=== PATIENT | female | born 2000 | race American Indian/Alaskan Native ===

== ENCOUNTER 2019-01-15 19:41 | Emergency (ER) | payer MEDICAID, OTHER ==
--- NOTE | 2019-01-15 20:09 | Emergency Department Report ---
Blank Doc - Documentation Documentation: This is a 19-year-old female that presents with SI. This initial assessment/diagnostic orders/clinical plan/treatment(s) is/are subject to change based on patient's health status, clinical progression and re- assessment by fellow clinical providers in the ED. Further treatment and workup at subsequent clinical providers discretion. Patient/guardians urged not to elope from the ED as their condition may be serious if not clinically assessed and managed. Initial orders include: 1- Patient sent to MAIN ED for further evaluation and treatment 2- shuttle repairer was notified to have patient be brought back [facility]. 3- RN was notified to keep patient as close range and observation until room available 4- Patient presents with substantial risk of imminent harm to self, appears to be so unable to care for his/her own physical health and safety as to create an imminently life-endangering crisis, and has committed/expressed life endangering crisis to self. Due to this and other complaints, patient is put on 1013.
[2019-01-15 20:39] LABS: Basophils % (Auto) 0.6 % (0.0-1.8); Eosinophils # (Auto) 0.7 K/mm3 (0.0-0.4); Hematocrit 39.7 % (30.3-42.9); Hemoglobin 13.7 gm/dl (10.1-14.3); Lymphocytes # (Auto) 1.7 K/mm3 (1.2-5.4); Lymphocytes % (Auto) 32.8 % (13.4-35.0); Mean Corpuscular HGB Conc 35 % (30-34); Mean Corpuscular Volume 93 fl (79-97); Monocytes # (Auto) 0.5 K/mm3 (0.0-0.8); Platelet Count 246 K/mm3 (140-440); Red Blood Count 4.28 M/mm3 (3.65-5.03); Red Cell Distribution Width 12.9 % (13.2-15.2)
[2019-01-15 20:48] LABS: BUN/Creatinine Ratio 14; Blood Urea Nitrogen 11 mg/dL (7-17); Calcium 8.8 mg/dL (8.4-10.2); Hemolysis Index 23
[2019-01-15 21:07] LABS: Bilirubin,Urine NEG (Negative); Blood,Urine LG (Negative); Color,Urine Yellow (Yellow); Mucus,Urine FEW /HPF; Protein,Urine <15 mg/dL mg/dL (Negative); Urobilinogen,Urine < 2.0 mg/dL (<2.0)
--- NOTE | 2019-01-15 21:07 | Emergency Department Report ---
ED Psych HPI - General Chief Complaint: Psych Stated Complaint: SUICIDAL THOUGHTS Time Seen by Provider: 01/15/19 20:09 Source: patient Mode of arrival: Ambulatory - History of Present Illness Initial Comments: Patient is a 19-year-old female who has a history of bipolar disorder who is currently feeling very depressed. Patient is a cutter and states she cut her left forearm several days ago. Patient states she is feeling actively suicidal. Denies a plan of cutting her wrist. Patient has no auditory or visual hallucinations at this time. Patient states she is compliant with her medications although she does not like the side effects. Patient is on Paxil Risperdal. - Related Data Home Medications Medication Instructions Recorded Confirmed Last Taken PARoxetine [Paxil] 20 mg PO DAILY 01/15/19 01/15/19 01/15/19 risperiDONE [RisperiDONE] 2 mg PO QHS 01/15/19 01/15/19 01/14/19 Allergies Allergy/AdvReac Type Severity Reaction Status Date / Time No Known Allergies Allergy Unverified 01/15/19 20:14 ED Review of Systems ROS: Stated complaint: SUICIDAL THOUGHTS Other details as noted in HPI Comment: All other systems reviewed and negative ED Past Medical Hx - Past Medical History Previous Medical History?: Yes Hx of Cancer: Yes (Thyroid) Hx Psychiatric Treatment: Yes (Depression, Bipolar) - Surgical History Past Surgical History?: Yes Additional Surgical History: Thyroidectomy - Social History Smoking Status: Never Smoker Substance Use Type: None - Medications Home Medications: Home Medications Medication Instructions Recorded Confirmed Last Taken Type PARoxetine [Paxil] 20 mg PO DAILY 01/15/19 01/15/19 01/15/19 History risperiDONE [RisperiDONE] 2 mg PO QHS 01/15/19 01/15/19 01/14/19 History ED Physical Exam - General Limitations: No Limitations General appearance: alert, in no apparent distress - Head Head exam: Present: atraumatic, normocephalic - Eye Eye exam: Present: normal appearance, PERRL, EOMI - ENT ENT exam: Present: mucous membranes moist - Neck Neck exam: Present: normal inspection - Respiratory Respiratory exam: Present: normal lung sounds bilaterally. Absent: respiratory distress, wheezes, rales, rhonchi - Cardiovascular Cardiovascular Exam: Present: regular rate, normal rhythm, normal heart sounds. Absent: systolic murmur, diastolic murmur, rubs, gallop - GI/Abdominal GI/Abdominal exam: Present: soft, normal bowel sounds. Absent: distended, tenderness, guarding, rebound - Extremities Exam Extremities exam: Present: normal inspection, other (patient's left forearm shows several well-healed scars from previous episodes of cutting. Is also one small linear abrasion which is also in the later stages of healing that appears to be newer than the other wounds. There is no open skin at this time there is no need for any further wound care.) - Back Exam Back exam: Present: normal inspection - Neurological Exam Neurological exam: Present: alert, oriented X3 - Psychiatric Psychiatric exam: Present: depressed, flat affect - Skin Skin exam: Present: warm, dry, intact, normal color. Absent: rash ED Course Vital Signs 01/15/19 19:49 Temperature 98.4 F Pulse Rate 95 H Respiratory 18 Rate Blood Pressure 120/77 O2 Sat by Pulse 97 Oximetry ED Medical Decision Making - Lab Data Result diagrams: 01/15/19 20:17 01/15/19 20:17 Lab Results 01/15/19 01/15/19 01/15/19 Range/Units 20:17 20:17 20:17 WBC 5.1 (4.5-11.0) K/mm3 RBC 4.28 (3.65-5.03) M/mm3 Hgb 13.7 (10.1-14.3) gm/dl Hct 39.7 (30.3-42.9) % MCV 93 (79-97) fl MCH 32 (28-32) pg MCHC 35 H (30-34) % RDW 12.9 L (13.2-15.2) % Plt Count 246 (140-440) K/mm3 Lymph % (Auto) 32.8 (13.4-35.0) % [place]linger % (Auto) 9.0 H (0.0-7.3) % Eos % (Auto) 13.0 H (0.0-4.3) % Baso % (Auto) 0.6 (0.0-1.8) % Lymph # 1.7 (1.2-5.4) K/mm3 Bollinger # 0.5 (0.0-0.8) K/mm3 Eos # 0.7 H (0.0-0.4) K/mm3 Baso # 0.0 (0.0-0.1) K/mm3 Seg Neutrophils % 44.6 (40.0-70.0) % Seg Neutrophils # 2.3 (1.8-7.7) K/mm3 Sodium 136 L (137-145) mmol/L Potassium 3.6 (3.6-5.0) mmol/L Chloride 100.9 (98-107) mmol/L Carbon Dioxide 22 (22-30) mmol/L Anion Gap 17 mmol/L BUN 11 (7-17) mg/dL Creatinine 0.8 (0.7-1.2) mg/dL Estimated GFR > 60 ml/min BUN/Creatinine Ratio 14 % Glucose 119 H (65-100) mg/dL Calcium 8.8 (8.4-10.2) mg/dL Urine Color (Yellow) Urine Turbidity (Clear) Urine pH (5.0-7.0) Ur Specific [place] (1.003-1.030) Urine Protein (Negative) mg/dL Urine Glucose (UA) (Negative) mg/dL Urine Ketones (Negative) mg/dL Urine Blood (Negative) Urine Nitrite (Negative) Urine Bilirubin (Negative) Urine Urobilinogen (<2.0) mg/dL Ur Leukocyte Esterase (Negative) Urine WBC (Auto) (0.0-6.0) /HPF Urine RBC (Auto) (0.0-6.0) /HPF U Epithel Cells (Auto) (0-13.0) /HPF Urine Mucus /HPF Urine HCG, Qual (Negative) Salicylates < 0.3 L (2.8-20.0) mg/dL Urine Opiates Screen Urine Methadone Screen Acetaminophen (10.0-30.0) ug/mL Ur Barbiturates Screen Ur Phencyclidine Scrn Ur Amphetamines Screen U Benzodiazepines Scrn Urine Cocaine Screen U Marijuana (THC) Screen Drugs of Abuse Note Plasma/Serum Alcohol (0-0.07) % 01/15/19 01/15/19 01/15/19 Range/Units 20:17 20:17 20:30 WBC (4.5-11.0) K/mm3 RBC (3.65-5.03) M/mm3 Hgb (10.1-14.3) gm/dl Hct (30.3-42.9) % MCV (79-97) fl MCH (28-32) pg MCHC (30-34) % RDW (13.2-15.2) % Plt Count (140-440) K/mm3 Lymph % (Auto) (13.4-35.0) % Bollinger % (Auto) (0.0-7.3) % Eos % (Auto) (0.0-4.3) % Baso % (Auto) (0.0-1.8) % Lymph # (1.2-5.4) K/mm3 Bollinger # (0.0-0.8) K/mm3 Eos # (0.0-0.4) K/mm3 Baso # (0.0-0.1) K/mm3 Seg Neutrophils % (40.0-70.0) % Seg Neutrophils # (1.8-7.7) K/mm3 Sodium (137-145) mmol/L Potassium (3.6-5.0) mmol/L Chloride (98-107) mmol/L Carbon Dioxide (22-30) mmol/L Anion Gap mmol/L BUN (7-17) mg/dL Creatinine (0.7-1.2) mg/dL Estimated GFR ml/min BUN/Creatinine Ratio % Glucose (65-100) mg/dL Calcium (8.4-10.2) mg/dL Urine Color Yellow (Yellow) Urine Turbidity Clear (Clear) Urine pH 5.0 (5.0-7.0) Ur Specific [place] 1.023 (1.003-1.030) Urine Protein <15 mg/dl (Negative) mg/dL Urine Glucose (UA) Neg (Negative) mg/dL Urine Ketones Neg (Negative) mg/dL Urine Blood Lg (Negative) Urine Nitrite Neg (Negative) Urine Bilirubin Neg (Negative) Urine Urobilinogen < 2.0 (<2.0) mg/dL Ur Leukocyte Esterase Tr (Negative) Urine WBC (Auto) 3.0 (0.0-6.0) /HPF Urine RBC (Auto) 130.0 (0.0-6.0) /HPF U Epithel Cells (Auto) 1.0 (0-13.0) /HPF Urine Mucus Few /HPF Urine HCG, Qual Negative (Negative) Salicylates (2.8-20.0) mg/dL Urine Opiates Screen Urine Methadone Screen Acetaminophen < 5.0 L (10.0-30.0) ug/mL Ur Barbiturates Screen Ur Phencyclidine Scrn Ur Amphetamines Screen U Benzodiazepines Scrn Urine Cocaine Screen U Marijuana (THC) Screen Drugs of Abuse Note Plasma/Serum Alcohol < 0.01 (0-0.07) % 01/15/19 Range/Units 20:30 WBC (4.5-11.0) K/mm3 RBC (3.65-5.03) M/mm3 Hgb (10.1-14.3) gm/dl Hct (30.3-42.9) % MCV (79-97) fl MCH (28-32) pg MCHC (30-34) % RDW (13.2-15.2) % Plt Count (140-440) K/mm3 Lymph % (Auto) (13.4-35.0) % Bollinger % (Auto) (0.0-7.3) % Eos % (Auto) (0.0-4.3) % Baso % (Auto) (0.0-1.8) % Lymph # (1.2-5.4) K/mm3 Bollinger # (0.0-0.8) K/mm3 Eos # (0.0-0.4) K/mm3 Baso # (0.0-0.1) K/mm3 Seg Neutrophils % (40.0-70.0) % Seg Neutrophils # (1.8-7.7) K/mm3 Sodium (137-145) mmol/L Potassium (3.6-5.0) mmol/L Chloride (98-107) mmol/L Carbon Dioxide (22-30) mmol/L Anion Gap mmol/L BUN (7-17) mg/dL Creatinine (0.7-1.2) mg/dL Estimated GFR ml/min BUN/Creatinine Ratio % Glucose (65-100) mg/dL Calcium (8.4-10.2) mg/dL Urine Color (Yellow) Urine Turbidity (Clear) Urine pH (5.0-7.0) Ur Specific [place] (1.003-1.030) Urine Protein (Negative) mg/dL Urine Glucose (UA) (Negative) mg/dL Urine Ketones (Negative) mg/dL Urine Blood (Negative) Urine Nitrite (Negative) Urine Bilirubin (Negative) Urine Urobilinogen (<2.0) mg/dL Ur Leukocyte Esterase (Negative) Urine WBC (Auto) (0.0-6.0) /HPF Urine RBC (Auto) (0.0-6.0) /HPF U Epithel Cells (Auto) (0-13.0) /HPF Urine Mucus /HPF Urine HCG, Qual (Negative) Salicylates (2.8-20.0) mg/dL Urine Opiates Screen Presumptive negative Urine Methadone Screen Presumptive negative Acetaminophen (10.0-30.0) ug/mL Ur Barbiturates Screen Presumptive negative Ur Phencyclidine Scrn Presumptive negative Ur Amphetamines Screen Presumptive negative U Benzodiazepines Scrn Presumptive negative Urine Cocaine Screen Presumptive negative U Marijuana (THC) Screen Presumptive negative Drugs of Abuse Note Disclamer Plasma/Serum Alcohol (0-0.07) % - Medical Decision Making Patient is medically clear for psychiatric evaluation at this time. Critical care attestation.: If time is entered above; I have spent that time in minutes in the direct care of this critically ill patient, excluding procedure time. ED Disposition Clinical Impression: Suicidal ideations, Encounter for psychiatric assessment Disposition: DC/TX-65 PSY HOSP/PSY UNIT Is pt being admited?: No Does the pt Need Aspirin: No Condition: Stable Time of Disposition: 21:38
[2019-01-15 21:12] LABS: HCG Qualitative,Urine Negative (Negative)
[2019-01-15 21:32] LABS: Amphetamine Screen,Urine PRESUMPTIVE NEGATIVE; Benzodiazepines Screen,Urine PRESUMPTIVE NEGATIVE; Cannabinoid Screen,Urine PRESUMPTIVE NEGATIVE; Cocaine Screen,Urine PRESUMPTIVE NEGATIVE; Methadone Screen,Urine PRESUMPTIVE NEGATIVE; Opiate Screen,Urine PRESUMPTIVE NEGATIVE
[2019-01-15] MEDS ORDERED: RisperDAL ONE (22:04)
[2019-01-15] MEDS: RisperDAL PO SCH (22:05)
[2019-01-16] MEDS: ATIVAN IM PRN (10:26)
--- NOTE | 2019-01-16 11:04 | Consultation ---
History of Present Illness - Reason for Consult Consult date: 01/16/19 Reason for consult: Mental Health Evaluation Requesting physician: BONIFACIO PACK - Chief Complaint Chief complaint: "I have no reason to live" - History of Present Psychiatric Illness 19-year-old female who presented to the ER for depression and SI's. Today the patent was calm, but withdrawn during the assessment. She stated that she have been feeling suicidal for several day. She cannot explain why she has SI's when asked. She stated that she cut her inner left FA "just because." She stated that she was dx with Bipolar DO and take Risperdal and Paxil currently. She continues to endorse Si's with a plan to cut her wrist.S he would not confirm or deny a previous suicide attempt when asked. She denies HI's and AVH's. She denies erratic sleep and a poor appetite. She denies recreational drug use and alcohol consumption (etoh). Medications and Allergies Allergies Allergy/AdvReac Type Severity Reaction Status Date / Time No Known Allergies Allergy Unverified 01/15/19 20:14 Home Medications Medication Instructions Recorded Confirmed Last Taken Type PARoxetine [Paxil] 20 mg PO DAILY 01/15/19 01/15/19 01/15/19 History risperiDONE [RisperiDONE] 2 mg PO QHS 01/15/19 01/15/19 01/14/19 History Active Meds: Active Medications Lorazepam (Ativan) 2 mg IM Q4HR PRN PRN Reason: Agitation Last Admin: 01/16/19 10:26 Dose: 2 mg Documented by: Risperidone (Risperdal) 2 mg PO QHS JOSE Stop: 01/18/19 21:59 Last Admin: 01/15/19 22:05 Dose: 2 mg Documented by: Mental Status Exam - Vital signs Last Vital Signs Temp 98.8 F 01/16/19 08:15 Pulse 69 01/16/19 08:15 Resp 18 01/16/19 08:15 BP 108/65 01/16/19 08:15 Pulse Ox 96 01/16/19 08:15 - Exam Narrative exam: MSE: Appearance: calm Behavior: poor eye contact Speech: regular rate and tone Mood: withdrawn Affect: flat Thought Process: circumstantial Thought Content: denies HI's and AVH's Motor Activity: sitting up in bed Cognition: A/O x3 Insight: variable Judgment: poor Results Result Diagrams: 01/15/19 20:17 01/15/19 20:17 Abnormal lab results 01/15/19 01/15/19 01/15/19 Range/Units 20:17 20:17 20:17 MCHC 35 H (30-34) % RDW 12.9 L (13.2-15.2) % [place] % (Auto) 9.0 H (0.0-7.3) % Eos % (Auto) 13.0 H (0.0-4.3) % Eos # 0.7 H (0.0-0.4) K/mm3 Sodium 136 L (137-145) mmol/L Glucose 119 H (65-100) mg/dL Salicylates < 0.3 L (2.8-20.0) mg/dL Acetaminophen (10.0-30.0) ug/mL 01/15/19 Range/Units 20:17 MCHC (30-34) % RDW (13.2-15.2) % [place] % (Auto) (0.0-7.3) % Eos % (Auto) (0.0-4.3) % Eos # (0.0-0.4) K/mm3 Sodium (137-145) mmol/L Glucose (65-100) mg/dL Salicylates (2.8-20.0) mg/dL Acetaminophen < 5.0 L (10.0-30.0) ug/mL All other labs normal. Assessment and Plan Assessment and plan: Impression: Unspecified Mood DO. Today the patient was calm, but withdrawn during the assessment. Self-Injury behavior. The patient endorsed SI's with a plan to cut her wrist. DDx: Bipolar DO, R/O MDD, Personality DO Recommendation/Plan: Continue 1013 and Risperdal 2 mg PO HS for mood. Discussed possible metabolic side effects Risperdal with the patient, she verbalized understanding. Ordered Line of Sight for safety, assigned nurse was informed. Dispo: The patient was referred to inpatient psy services. Will staff with Dr Morris Cunha.
[2019-01-16] MEDS: RisperDAL PO SCH (22:12)
[2019-01-17] MEDS: ATIVAN IM PRN (11:01)
--- NOTE | 2019-01-17 20:13 | Progress Note ---
Subjective - Reason for Consult Consult date: 01/17/19 Reason for consult: follow up - Chief Complaint Chief complaint: "I feel better." 19-year-old female who presented to the ER for depression and SI's. Today the patent was calm, but withdrawn during the assessment. She stated that she have been feeling suicidal for several days. She cannot explain why she has SI's when asked. She stated that she cut her inner left FA "just because." She stated that she was dx with Bipolar DO and take Risperdal and Paxil currently. She has been without paxil for 2 days and says it gave her a rash. She reports . She received a PRN for agitation.She denies HI's and AVH's. She denies erratic sleep and a poor appetite. She denies recreational drug use and alcohol consumption (etoh). Narrative exam: MSE: Appearance: calm Behavior: poor eye contact Speech: regular rate and tone Mood: withdrawn Affect: flat Thought Process: circumstantial Thought Content: denies HI's and AVH's Motor Activity: sitting up in bed Cognition: A/O x3 Insight: variable Judgment: poor Mental Status Exam - Vital signs Last Vital Signs Temp 98.3 F 01/17/19 08:00 Pulse 65 01/17/19 08:00 Resp 16 01/17/19 08:00 BP 127/81 01/17/19 08:00 Pulse Ox 98 01/17/19 08:00 Assessment and Plan Impression: Unspecified Mood DO. Today the patient was calm, but withdrawn during the assessment. Self-Injury behavior. The patient endorsed SI's with a plan to cut her wrist. DDx: Bipolar DO, R/O MDD, Personality DO Recommendation/Plan: Continue 1013 Risperdal discontinued due to complaints of and paxil discontinued due to complaints of rash. Nurses informed of adverse/side effects of these meds. Dispo: The patient was referred to inpatient psy services. Will staff with Dr Morris Cunha.
[2019-01-18] MEDS ORDERED: GEODON IM ONE ×2 (14:50→16:29)
[2019-01-18] MEDS ORDERED: WATER FOR INJ Sterile (PF) 10 ML ONE (14:51)
--- NOTE | 2019-01-19 14:24 | Progress Note ---
Subjective - Reason for Consult Consult date: 01/19/19 Reason for consult: Psychiatric Follow-up Evaluation - Chief Complaint Chief complaint: Patient is crying uncontrollable/hysterically Patient is a 19-year-old female who presented to the ER for depression and suicidal ideations. Today the patent is tearful and irritable. Patient can be seen crying uncontrollable. She states, " they stopped giving me my Paxil because of side effects but didn't give me another medication for depression. They gave me shots. " Patient reports decrease sleep, decrease energy, lack of motivation, and appropriate appetite. Patient endorses suicidal ideation with plan to cut self. She denies HI's, A/VH's, and delusions. Mental Status Exam - Vital signs Last Vital Signs Temp 98.9 F 01/19/19 13:00 Pulse 80 01/19/19 13:00 Resp 22 01/19/19 13:00 BP 140/90 01/19/19 13:00 Pulse Ox 95 01/19/19 13:00 - Exam Narrative exam: Mental Status Exam: Appearance: crying, anxious, irritable Behavior: poor eye contact Speech: regular rate and tone Mood: " I'm always depressed" Affect: labile Thought Process: circumstantial Thought Content: denies HI's, AVH's, and delusions; + suicidal ideations with plan to cut self Motor Activity: sitting up in bed Cognition: A/O x 3 Insight: poor Judgment: poor Assessment and Plan Impression: Unspecified Mood DO. Today the patient is tearful and irritable during the assessment. Self-Injury behavior. The patient endorses suicidal ideations with a plan to cut her wrist. DDx: Bipolar DO, R/O MDD, Personality DO Recommendation/Plan: 1. Continue 1013. 2. Restart Celexa 10mg po QAM depression/ anxiety ( per patient she has taken this medication in past and it has been effective). Discussed possible side effe cts of increase suicidality/ medication induced john. Increase Zyprexa 15mg po QHS mood. Discussed the metabolic side effects of Zyprexa. Patient verbalizes some understanding. 3. Will attempt to gain collateral to determine proper disposition. Disposition: The patient referred to inpatient psychiatric services. Will staff with Dr. Morris Cunha.
[2019-01-19] MEDS: celeXA PO SCH (18:53)
[2019-01-19] MEDS ORDERED: TYLENOL PO ONE (21:11)
[2019-01-19] MEDS ORDERED: TYLENOL ONE (21:12)
[2019-01-20] MEDS: celeXA PO SCH (11:22)
--- NOTE | 2019-01-20 14:38 | Progress Note ---
Subjective - Reason for Consult Consult date: 01/20/19 Reason for consult: Psychiatric Follow-up Evaluation - Chief Complaint Chief complaint: " I'm good." Patient is a 19-year-old female who presented to the ER for depression and suicidal ideations. Today the patent is calm and cooperative during the assessment. She states, " I'm having a better day today. I haven't had any suicidal thoughts today. Today I feel more calm. " She reports appropriate appetite, energy, and sleep. Patient is medication compliant. No side effects noted/reported. She denies SI/HI's, A/VH's, and delusions. Mental Status Exam - Vital signs Last Vital Signs Temp 98.4 F 01/20/19 13:54 Pulse 71 01/20/19 13:54 Resp 16 01/20/19 13:54 BP 111/65 01/20/19 13:54 Pulse Ox 99 01/20/19 13:54 - Exam Narrative exam: Mental Status Exam: Appearance: calm, cooperative; green hospital scrubs Behavior: regular eye contact Speech: regular rate and tone Mood: " I feel better" Affect: less depressed/anxious Thought Process: reality oriented; circumstantial Thought Content: pt denies SI/HI's, AVH's, and delusions Motor Activity: sitting up in bed Cognition: A/O x 3 Insight: variable Judgment: variable Assessment and Plan Impression: Unspecified Mood DO. Today the patient is calm and cooperative during the assessment. No self-Injury behavior noted. The patient denies SI/HI's. DDx: Bipolar DO, R/O MDD, Personality DO Recommendation/Plan: 1. Reevaluate 1013 in 24 hours. If 1013 is rescinded patient will follow-up with Dr. Daley/[facility]. 2. Continue Celexa 10mg po QAM depression/ anxiety and Zyprexa 15mg po QHS mood. Discussed side effects. Patient verbalizes full understanding. 3. Will attempt to gain collateral to determine proper disposition. Disposition: Will refer to inpatient psychiatric services. Will staff with Dr. Morris Cunha.
--- NOTE | 2019-01-21 11:59 | Progress Note ---
Subjective - Reason for Consult Consult date: 01/21/19 Reason for consult: follow up - Chief Complaint Chief complaint: " I'm good." Patient is a 19-year-old female who presented to the ER for depression and suicidal ideations. Today the patent is calm and cooperative during the assessment. She denies suicidal ideation. She denies self harming ideation. She states she is feeling better with the medication changes and wants to follow up with outpatient mental health services. She has an appointment 02/06/2019 at [place] and another appointment 02/11/19. She lives with Ms. Nuñez, who is her ex boyfriend's mother. Ms. Nuñez expressed her support for [facility] and will be taking her to appointments. She wants to make sure she is stable and has the new medications before she returns home. Mental Status Exam - Vital signs Last Vital Signs Temp 98.4 F 01/21/19 09:26 Pulse 63 01/21/19 09:26 Resp 18 01/21/19 09:26 BP 118/66 01/21/19 09:26 Pulse Ox 99 01/21/19 09:26 - Exam Narrative exam: Appearance: calm, cooperative; green hospital scrubs Behavior: regular eye contact Speech: regular rate and tone Mood: " I feel better" Affect: less depressed/anxious Thought Process: reality oriented; circumstantial Thought Content: pt denies SI/HI's, AVH's, and delusions Motor Activity: sitting up in bed Cognition: A/O x 3 Insight: fair Judgment: fair Assessment and Plan Impression: Unspecified Mood DO. Today the patient is calm and cooperative during the assessment. No self-Injury behavior noted. The patient denies SI/HI's. DDx: Bipolar DO, R/O MDD, Personality DO No acute safety concerns were identified. She has future and goal oriented thinking/planning. She displays help seeking behavior and plans to follow up with her outpatient provider. She has good social support from Ms. Nuñez. Recommendation/Plan: 1. Her 1013 expires and will not be renewed. She no longer meets criteria. 2. Continue Celexa 10mg po QAM depression/ anxiety and Zyprexa 15mg po QHS mood. Discussed side effects. Patient verbalizes full understanding. --These meds should be continued until her follow up appointment on 02/06/19. Disposition: outpatient mental health treatment, to include psychiatrist and counselor. She has an appointment with [facility] 02/06/2019. Provide crisis line in case of suicidal ideation. Staffed with Dr. Morris Cunha.
[2019-01-21] MEDS: celeXA PO SCH (12:20)
[2019-01-21 16:33] VITALS: BP 114/75
== END 2019-01-21 17:30 | disposition home or self-care (01) ==
LOC: ED 19:41 → EEVIPCON 19:41 → ED 01-17 13:19
DX: F31.9 Bipolar disorder, unspecified (principal); Z79.899 Other long term (current) drug therapy; Z85.850 Personal history of malignant neoplasm of thyroid; E89.0 Postprocedural hypothyroidism
CPT/HCPCS: 36415; 80048; 80307; 81001; 81025; 85025; 96372; 99284; G0480; J2060; J3486; 80320